=== PATIENT | female | born 1950 | race Caucasian/White ===

== ENCOUNTER 2021-12-18 17:06 | Inpatient (IN) ==
[2021-12-18] MEDS ORDERED: nitroGLYCERIN DRIP 25,000 MCG/250 ML BTL IV ONE (17:27)
[2021-12-18 18:04] LABS: ABS Basophils 0.1 10^3/ul (0-0.2); ABS Eosinophils 0.3 10^3/ul (0-0.6); ABS Lymphocytes 1.9 10^3/ul (1.0-4.8); ABS Monocytes 0.9 10^3/ul (0-0.8); ABS Neutrophils 7.3 10^3/ul (1.5-7.7); Eosinophil % 3.2 %; Hematocrit 36 % (35-47); Hemoglobin 11.9 g/dL (12.0-16.0); Lymphocyte % 18.4 %; Mean Corpuscular HGB Conc 33 g/dL (31-36); Mean Corpuscular Hemoglobin 29 pg (27-31); Mean Corpuscular Volume 89 fL (80-97); Mean Platelet Volume 8.3 fL (7.4-10.4); Platelet Count 249 10^3/uL (150-450); Red Blood Count 4.07 10^6 /uL (3.70-4.87); Red Cell Distribution Width 15 % (10-15); White Blood Count 10.6 10^3/uL (3.5-10.8)
[2021-12-18 18:13] LABS: Activated Partial Thrombo Time 81.6 seconds (26.0-38.0); INR 1.22 (0.86-1.15)
[2021-12-18 18:46] LABS: Blood Urea Nitrogen 21 mg/dL (6-24); CO2 Carbon Dioxide 25 mmol/L (22-32); Calcium 9.1 mg/dL (8.6-10.3); Chloride 105 mmol/L (101-111); Glucose 114 mg/dL (70-100); Sodium 140 mmol/L (135-145); eGFR CKD-EPI 22.4 (>60)
[2021-12-18] MEDS ORDERED: Furosemide 40 mg/4 ml IV VIAL IV ONE (18:53)
[2021-12-18] MEDS ORDERED: niCARdipine 0.1MG/ML IVPREMIX 20 MG/200 ML BAG IV SCH ×3 (19:00→22:43)
[2021-12-18 19:24] LABS: Anion Gap 10 mmol/L (2-11)
[2021-12-18 19:38] LABS: High Sensitivity Troponin 1 Hr 1142 pg/mL (<15)
[2021-12-18] MEDS: Heparin DRIP 25,000 UNITS BAG 25,000 UNITS/500 ML BAG IV SCH (19:48)
[2021-12-18] MEDS: Heparin 5000 UNITS/ML 1 mL VIAL IV SCH (19:56)
[2021-12-18 20:52] LABS: Creatine Kinase 303 U/L (10-223)
[2021-12-18] MEDS: Sodium Bicarb 650 mg (ANTACID) TAB PO SCH (20:55)
[2021-12-18] MEDS ORDERED: Isosorbide Mononit ER 60mg TAB PO SCH (21:00)
[2021-12-18 22:32] LABS: Potassium, Whole Blood 3.7 mmol/L (3.4-4.5)
[2021-12-18 22:39] LABS: Magnesium 1.6 mg/dL (1.9-2.7); Phosphorus 3.1 mg/dL (2.5-5.0)
[2021-12-18] MEDS ORDERED: nitroGLYCERIN DRIP 25,000 MCG/250 ML BTL IV SCH (22:44)
[2021-12-18] MEDS ORDERED: Magnesium Sulfate 2 gm BAG 2 GM/50 ML BAG IVPB ONE (23:26)
[2021-12-19 05:27] LABS: ABS Eosinophils 0.5 10^3/ul (0-0.6); ABS Lymphocytes 2.1 10^3/ul (1.0-4.8); ABS Monocytes 0.8 10^3/ul (0-0.8); ABS Neutrophils 4.3 10^3/ul (1.5-7.7); Hematocrit 32 % (35-47); Hemoglobin 10.6 g/dL (12.0-16.0); Lymphocyte % 27.1 %; Mean Corpuscular HGB Conc 33 g/dL (31-36); Mean Corpuscular Hemoglobin 29 pg (27-31); Mean Corpuscular Volume 89 fL (80-97); Mean Platelet Volume 8.1 fL (7.4-10.4); Platelet Count 218 10^3/uL (150-450); Red Blood Count 3.61 10^6 /uL (3.70-4.87); Red Cell Distribution Width 15 % (10-15); White Blood Count 7.8 10^3/uL (3.5-10.8)
[2021-12-19] MEDS ORDERED: Lorazepam PYXIS KEY PRN (05:40)
[2021-12-19] MEDS ORDERED: LORazepam 2 mg VIAL 1 ml IV PUSH ONE (05:40)
[2021-12-19] MEDS ORDERED: Lorazepam PYXIS KEY ONE (05:51)
[2021-12-19 06:03] LABS: Calcium 8.7 mg/dL (8.6-10.3); Potassium 3.8 mmol/L (3.5-5.0)
[2021-12-19 06:09] LABS: C Reactive Protein 76.83 mg/L (<8.01); eGFR CKD-EPI 21.3 (>60)
[2021-12-19] MEDS ORDERED: Isosorbide Mononit ER 60mg TAB PO SCH (09:00)
[2021-12-19] MEDS ORDERED: Furosemide 40 mg/4 ml IV VIAL IV ONE (09:33)
[2021-12-19] MEDS: Heparin 5000 UNITS/ML 1 mL VIAL IV SCH (10:03)
[2021-12-19] MEDS: Sodium Bicarb 650 mg (ANTACID) TAB PO SCH ×2 (10:03→20:24)
[2021-12-19] MEDS: Aspirin EC 81 mg TAB.EC (enteric coated) PO SCH (10:04)
[2021-12-19] MEDS ORDERED: Hydrocortisone 0.5% OINT 1 TUBE TOPICAL PRN (19:47)
[2021-12-19] MEDS: Isosorbide Mononit ER 60mg TAB PO SCH (20:23)
[2021-12-20] MEDS: Heparin DRIP 25,000 UNITS BAG 25,000 UNITS/500 ML BAG IV SCH (00:17)
[2021-12-20 05:59] LABS: ABS Eosinophils 0.6 10^3/ul (0-0.6); ABS Lymphocytes 1.9 10^3/ul (1.0-4.8); ABS Monocytes 0.5 10^3/ul (0-0.8); ABS Neutrophils 2.2 10^3/ul (1.5-7.7); Eosinophil % 11.7 %; Hematocrit 30 % (35-47); Hemoglobin 9.8 g/dL (12.0-16.0); Lymphocyte % 35.9 %; Mean Corpuscular HGB Conc 33 g/dL (31-36); Mean Corpuscular Hemoglobin 29 pg (27-31); Mean Corpuscular Volume 90 fL (80-97); Mean Platelet Volume 8.1 fL (7.4-10.4); Nucleated Red Blood Cells % 0.1; Platelet Count 185 10^3/uL (150-450); Red Blood Count 3.38 10^6 /uL (3.70-4.87); Red Cell Distribution Width 15 % (10-15); White Blood Count 5.3 10^3/uL (3.5-10.8)
[2021-12-20 06:48] LABS: Calcium 8.6 mg/dL (8.6-10.3); Magnesium 1.9 mg/dL (1.9-2.7); Potassium 3.6 mmol/L (3.5-5.0)
[2021-12-20 06:54] LABS: eGFR CKD-EPI 19.1 (>60)
[2021-12-20] MEDS ORDERED: Magnesium Sulfate IV 1GM/100ML 1 GM/100 ML BAG IV ONE (07:27)
[2021-12-20] MEDS: Aspirin EC 81 mg TAB.EC (enteric coated) PO SCH (08:58)
[2021-12-20] MEDS: Sodium Bicarb 650 mg (ANTACID) TAB PO SCH ×2 (08:58→20:05)
[2021-12-20] MEDS ORDERED: Regadenoson 0.4 MG/5 ML SYRINGE ONE (12:39)
[2021-12-20] MEDS ORDERED: Aminophylline 25 MG/ML VIAL ONE (12:39)
[2021-12-20] MEDS: Senna TAB 8.6 mg TAB PO PRN (18:44)
[2021-12-20] MEDS: Isosorbide Mononit ER 60mg TAB PO SCH (20:05)
[2021-12-20] MEDS: Neomycin/Polym/Bacit TOP OINT 15 GM TOPICAL SCH (22:21)
[2021-12-21 06:43] LABS: ABS Eosinophils 0.6 10^3/ul (0-0.6); ABS Lymphocytes 1.5 10^3/ul (1.0-4.8); ABS Monocytes 0.6 10^3/ul (0-0.8); Eosinophil % 12.1 %; Hematocrit 29 % (35-47); Hemoglobin 9.6 g/dL (12.0-16.0); Lymphocyte % 31.9 %; Mean Corpuscular HGB Conc 33 g/dL (31-36); Mean Corpuscular Hemoglobin 30 pg (27-31); Mean Corpuscular Volume 89 fL (80-97); Mean Platelet Volume 8.3 fL (7.4-10.4); Nucleated Red Blood Cells % 0.1; Platelet Count 204 10^3/uL (150-450); Red Blood Count 3.22 10^6 /uL (3.70-4.87); Red Cell Distribution Width 15 % (10-15); White Blood Count 4.7 10^3/uL (3.5-10.8)
[2021-12-21 07:02] LABS: Calcium 8.7 mg/dL (8.6-10.3); Magnesium 2.3 mg/dL (1.9-2.7); Potassium 3.7 mmol/L (3.5-5.0); eGFR CKD-EPI 19.2 (>60)
[2021-12-21] MEDS: Aspirin EC 81 mg TAB.EC (enteric coated) PO SCH (08:58)
[2021-12-21] MEDS: Sodium Bicarb 650 mg (ANTACID) TAB PO SCH ×2 (08:58→22:29)
[2021-12-21] MEDS: Neomycin/Polym/Bacit TOP OINT 15 GM TOPICAL SCH ×3 (09:00→22:29)
[2021-12-21] MEDS: Senna TAB 8.6 mg TAB PO PRN (12:35)
[2021-12-21] MEDS: Isosorbide Mononit ER 60mg TAB PO SCH (22:27)
[2021-12-22 07:05] LABS: Anion Gap 6 mmol/L (2-11); Blood Urea Nitrogen 27 mg/dL (6-24); CO2 Carbon Dioxide 33 mmol/L (22-32); Calcium 8.7 mg/dL (8.6-10.3); Chloride 102 mmol/L (101-111); Glucose 114 mg/dL (70-100); Magnesium 2.3 mg/dL (1.9-2.7); Potassium 3.9 mmol/L (3.5-5.0); Sodium 141 mmol/L (135-145); eGFR CKD-EPI 16.9 (>60)
[2021-12-22] MEDS: Aspirin EC 81 mg TAB.EC (enteric coated) PO SCH (08:41)
[2021-12-22] MEDS: Sodium Bicarb 650 mg (ANTACID) TAB PO SCH ×2 (08:42→21:35)
[2021-12-22] MEDS: Neomycin/Polym/Bacit TOP OINT 15 GM TOPICAL SCH ×3 (08:48→21:35)
[2021-12-22 09:58] LABS: % Iron Saturation 16 % (15-55); Iron 32 ug/dL (50-212); Total Iron Binding Capacity 199 mcg/dL (250-450); Transferrin 142 mg/dL (203-362); Unsaturated Iron Binding 167 ug/dL
[2021-12-22 10:13] LABS: TSH Ultra Thyroid Stim Horm 12.36 mcIU/mL (0.34-5.60)
[2021-12-22 10:24] LABS: Folate > 20.00 ng/mL (5.90-24.80)
[2021-12-22 10:25] LABS: Vitamin B12 > 1450 pg/mL (180-914)
[2021-12-22 12:57] LABS: Scleroderma Ab <0.2 U
[2021-12-22] MEDS ORDERED: cloNIDine 0.2 MG PATCH 0.2 MG/24 HR 7 DAY PATCH TRANSDERM SCH (13:00)
[2021-12-22] MEDS ORDERED: cloNIDine 0.3 MG PATCH 0.3 MG/24 HR 7 DAY PATCH TRANSDERM SCH (13:00)
[2021-12-22] MEDS: Senna TAB 8.6 mg TAB PO PRN ×2 (14:17→18:16)
[2021-12-22 15:16] LABS: T4, Total 6.55 mcg/dL (6.09-12.23)
[2021-12-22 15:25] LABS: Ferritin 39.3 ng/mL (11-307)
[2021-12-22 16:42] LABS: Urine Appearance Clear; Urine Bilirubin Negative (Negative); Urine Blood Negative (Negative); Urine Color Yellow; Urine Glucose Negative (Negative); Urine Ketones Negative (Negative); Urine Nitrite Negative (Negative); Urine Protein Negative (Negative); Urine Specific Gravity 1.017 (1.002-1.030); Urine Urobilinogen Negative (Negative)
[2021-12-22 16:46] LABS: Urine Bacteria Absent (Absent); Urine Red Blood Cell Absent (Absent); Urine Squamous Epithelial Cell Present (Absent); Urine White Blood Cell Trace(0-5/hpf) (Absent)
[2021-12-22] MEDS: Isosorbide Mononit ER 60mg TAB PO SCH (21:34)
[2021-12-23] MEDS: Sodium Bicarb 650 mg (ANTACID) TAB PO SCH (08:51)
[2021-12-23] MEDS: Aspirin EC 81 mg TAB.EC (enteric coated) PO SCH (08:51)
[2021-12-23] MEDS: Neomycin/Polym/Bacit TOP OINT 15 GM TOPICAL SCH ×2 (08:52→13:59)
[2021-12-23 10:00] LABS: Magnesium 2.3 mg/dL (1.9-2.7); Potassium 4.5 mmol/L (3.5-5.0); eGFR CKD-EPI 15.8 (>60)
[2021-12-23 10:14] LABS: TSH Ultra Thyroid Stim Horm 15.18 mcIU/mL (0.34-5.60)
[2021-12-23 10:16] LABS: Free T4 0.58 ng/dL (0.61-1.12)
[2021-12-23] MEDS: Senna TAB 8.6 mg TAB PO PRN (13:57)
[2021-12-23 16:48] VITALS: BP 161/70
[2021-12-26 15:34] LABS: Renin 27 ng/mL/h
== END 2021-12-23 17:00 | disposition home or self-care (01) | DRG 280 ==
LOC: ED 17:06 → EDHOLD 18:03 → SUATTDRO 18:03 → EDHOLD 20:03 → ICU 20:28 → MEDTELE 12-20 20:49
PROVIDERS: ADMIT Internal Medicine; ATTEND Internal Medicine